=== PATIENT | female | born 1960 | race Caucasian/White ===

== ENCOUNTER 2021-02-10 19:50 | Emergency (ER) | payer BC ==
[2021-02-10] MEDS ORDERED: TYLENOL 325 MG PO ONE (21:11)
[2021-02-10] MEDS ORDERED: Sodium Chloride 0.9% 1000 ML 1,000 ML IV SCH (21:15)
[2021-02-10 21:24] LABS: ALBUMIN 4.4 g/dL (3.5-5.0); ALKALINE PHOSPHATASE 77 U/L (38-126); ANION GAP 14.9 MEQ/L (5-15); BLOOD UREA NITROGEN 18 mg/dL (7-17); CHLORIDE 102 mmol/L (98-107); Calcium 9.8 mg/dL (8.4-10.2); Carbon Dioxide 26 mmol/L (22-30); Creatinine 1 0.77 mg/dL (0.52-1.04); EST GLOMERULAR FILTRATION RATE > 60.0 ML/MIN; Glucose 112 mg/dL (74-106); Potassium 3.7 mmol/L (3.5-5.1); SGOT/AST 21 U/L (14-36); SGPT/ALT 25 U/L (0-35); SODIUM 139 mmol/L (137-145); Total Protein 7.7 g/dL (6.3-8.2)
[2021-02-10 21:25] LABS: Absolute Neutrophil Ct (ANC) 5.22 (1.4-6.9); BASOPHIL % 0.5 % (0.0-0.4); Basophil (Absolute #) 0.04 (0-0.4); Eosinophil % 2.5 % (0.00-5.0); Eosinophil (Absolute #) 0.21 (0-0.5); Hematocrit 45.5 % (35-47); Hemoglobin 14.3 gm/dl (12.0-16.0); Lymphocyte (Absolute #) 2.19 (1.0-4.6); Lymphocytes % 26.4 % (24.0-44.0); Mean Cell Volume 91.2 fl (78-100); Mean Corpuscular Hemoglobin 28.7 pg (26-32); Mean Corpuscular Hgb Concent. 31.4 g/dl (32-36); Mean Platelet Volume 9.8 fl (7.5-11.0); Monocyte (Absolute #) 0.64 (0.0-1.3); Monocytes % 7.7 % (0.0-12.0); Neutrophil % 62.9 % (36.0-66.0); Platelet Count 319 K/mm3 (150-450); Red Blood Count 4.99 M/mm3 (4.1-5.4); Red Cell Distribution Width 15.5 % (11.5-14.0); White Blood Count 8.3 K/mm3 (4.0-10.5)
[2021-02-10] MEDS ORDERED: TYLENOL 325 MG ONE (21:25)
[2021-02-10] MEDS ORDERED: Sodium Chloride 0.9% 1000 ML 1,000 ML ONE (21:25)
--- NOTE | 2021-02-10 22:18 | ERPHSYRPT ---
- History of Present Illness Time Seen by Provider: 02/10/21 20:10 Historian: patient Exam Limitations: no limitations Patient Subjective Stated Complaint: pt states "I was kicked off my horse on Tuesday." Triage Nursing Assessment: pt ambulated into the er; pt is axo x4; c/o left rib and left abd pain; pt states 3/10 pain to left rib; pt states pain is sharp and intermittent pain; pt states difficulty taking deep breaths; pt states she fell on pavement on left side; abd is round, firm, tender; pt has coarse, rub sounds in LLL; active bowel sounds in all quads; pt denies N/V/D; hypertensive Physician History: Patient is a 60-year-old female presents to emergency department with complaints of possible left lower lobe rib fractures and left upper quadrant abdominal pain. Patient states she fell off of her horse on Tuesday 3 days ago. Patient has been experiencing intermittent sharp pain since then. Pain is mild to moderate in intensity. Deep breathing reproduces localized pain to the left ribs. No other complaints. No chest pain or shortness of breath. No nausea vomiting or diaphoresis. Symptoms are ongoing. Patient concerned that she may have rib fractures. Patient voices no other complaints or concerns at this time. Timing/Duration: day(s) (3 days ago) Activities at Onset: activity Quality: sharpness Abdominal Pain Onset Location: [facility] Pain Radiation: no radiation Severity of Pain-Max: moderate Severity of Pain-Current: mild Modifying Factors: Improves With: breathing Associated Symptoms: denies symptoms Previous symptoms: no prior history Allergies/Adverse Reactions: Bleach (Sodium Hypochlorite) Allergy (Verified 02/10/21 20:03) Itching Home Medications: Losartan Potassium 100 mg PO DAILY 02/10/21 [History] Hx Tetanus, Diphtheria Vaccination/Date Given: Yes Hx Influenza Vaccination/Date Given: No Hx Pneumococcal Vaccination/Date Given: No Travel Risk - International Travel Have you traveled outside of the country in past 3 weeks: No - Coronavirus Screening Are you exhibiting any of the following symptoms?: No Close contact with a COVID-19 positive Pt in past 14-21 Days: No - Vaccine Status Have you recieved a Covid-19 vaccination: Yes Play Back Operator: Binary Thumb - Review of Systems Constitutional: No Symptoms, No Fever, No Chills Eyes: No Symptoms Ears, Nose, & Throat: No Symptoms Respiratory: No Symptoms, No Cough, No Dyspnea Cardiac: No Symptoms, No Chest Pain, No Edema, No Syncope Abdominal/Gastrointestinal: No Symptoms, No Abdominal Pain, No Nausea, No Vomiting, No Diarrhea Genitourinary Symptoms: No Symptoms, No Dysuria Musculoskeletal: No Symptoms, No Back Pain, No Neck Pain Skin: No Symptoms, No Rash Neurological: No Symptoms, No Dizziness, No Focal Weakness, No Sensory Changes Psychological: No Symptoms Endocrine: No Symptoms Hematologic/Lymphatic: No Symptoms Immunological/Allergic: No Symptoms All Other Systems: Reviewed and Negative - Past Medical History Pertinent Past Medical History: Yes Neurological History: No Pertinent History ENT History: No Pertinent History Cardiac History: Hypertension Respiratory History: No Pertinent History Endocrine Medical History: No Pertinent History Musculoskeletal History: No Pertinent History GI Medical History: No Pertinent History History: No Pertinent History Psycho-Social History: No Pertinent History Female Reproductive Disorders: No Pertinent History - Past Surgical History Past Surgical History: Yes Neuro Surgical History: No Pertinent History Cardiac: No Pertinent History Respiratory: No Pertinent History Gastrointestinal: No Pertinent History Genitourinary: No Pertinent History Musculoskeletal: Orthopedic Surgery Female Surgical History: Hysterectomy Other Surgical History: rt knee - Social History Smoking Status: Never smoker Exposure to second hand smoke: Yes Drug Use: none Patient Lives Alone: No - Female History Hx Now: No - Nursing Vital Signs Nursing Vital Signs: Initial Vital Signs Temperature 97.9 F 02/10/21 20:04 Pulse Rate 81 02/10/21 20:04 Respiratory Rate 18 02/10/21 20:04 Blood Pressure 203/93 02/10/21 20:04 O2 Sat by Pulse Oximetry 97 02/10/21 20:04 Pain Scale Pain Intensity 2 - Physical Exam General Appearance: no apparent distress, alert Eye Exam: PERRL/EOMI, eyes nml inspection Ears, Nose, Throat Exam: normal ENT inspection, pharynx normal, moist mucous membranes Neck Exam: normal inspection, non-tender, supple, full range of motion Respiratory Exam: normal breath sounds, lungs clear, No respiratory distress Cardiovascular Exam: regular rate/rhythm, normal heart sounds Gastrointestinal/Abdomen Exam: soft, No tenderness, No mass Back Exam: normal inspection, normal range of motion, No CVA tenderness, No vertebral tenderness Extremity Exam: normal inspection, normal range of motion, pelvis stable Neurologic Exam: alert, oriented x 3, cooperative, normal mood/affect, nml cerebellar function, sensation nml, No motor deficits Skin Exam: normal color, warm, dry SpO2 Interpretation: normal SpO2: 96 O2 Delivery: Room Air - Course Nursing assessment & vital signs reviewed: Yes - Radiology Exams Abdomen X-ray Interpretation: Teleradiologist Report Ordered Tests: Active Orders 24 hr Category Date Time Status IV Insertion STAT Care 02/10/21 21:11 Active ABDOMEN AND PELVIS W CONTRAST [CT] Stat Exams 02/10/21 22:14 Taken CBC W DIFF Stat Lab 02/10/21 21:11 Completed CMP Stat Lab 02/10/21 21:11 Completed TROPONIN Q3H Lab 02/10/21 21:11 Completed TROPONIN Q3H Lab 02/11/21 00:15 Ordered TROPONIN Q3H Lab 02/11/21 03:15 Ordered TROPONIN Q3H Lab 02/11/21 06:15 Ordered TROPONIN Q3H Lab 02/11/21 09:15 Ordered Medication Summary Generic Name Dose Route Start Last Admin Trade Name Freq PRN Reason Stop Dose Admin Sodium Chloride 1,000 mls @ 100 mls/hr 02/10/21 21:15 02/10/21 21:27 Sodium Chloride 0.9% 1000 Ml IV 03/12/21 21:14 100 mls/hr .Q10H TERESA Administration Discontinued Medications Generic Name Dose Route Start Last Admin Trade Name Freq PRN Reason Stop Dose Admin Acetaminophen 975 mg 02/10/21 21:11 02/10/21 21:27 Tylenol 325 Mg PO 02/10/21 21:12 975 mg STAT ONE Administration Acetaminophen Confirm 02/10/21 21:25 Tylenol 325 Mg Administered 02/10/21 21:26 Dose 975 mg .ROUTE .Blip Lab/Rad Data: Laboratory Result Diagrams 02/10/21 21:11 02/10/21 21:11 Laboratory Results 02/10/21 02/10/21 02/10/21 Range/Units 21:11 21:11 21:11 WBC 8.3 (4.0-10.5) K/mm3 RBC 4.99 (4.1-5.4) M/mm3 Hgb 14.3 (12.0-16.0) gm/dl Hct 45.5 (35-47) % MCV 91.2 (78-100) fl MCH 28.7 (26-32) pg MCHC 31.4 L (32-36) g/dl RDW 15.5 H (11.5-14.0) % Plt Count 319 (150-450) K/mm3 MPV 9.8 (7.5-11.0) fl Gran % 62.9 (36.0-66.0) % Eos # (Auto) 0.21 (0-0.5) Absolute Lymphs (auto) 2.19 (1.0-4.6) Absolute Monos (auto) 0.64 (0.0-1.3) Lymphocytes % 26.4 (24.0-44.0) % Monocytes % 7.7 (0.0-12.0) % Eosinophils % 2.5 (0.00-5.0) % Basophils % 0.5 (0.0-0.4) % Absolute Granulocytes 5.22 (1.4-6.9) Basophils # 0.04 (0-0.4) Sodium 139 (137-145) mmol/L Potassium 3.7 (3.5-5.1) mmol/L Chloride 102 (98-107) mmol/L Carbon Dioxide 26 (22-30) mmol/L Anion Gap 14.9 (5-15) MEQ/L BUN 18 H (7-17) mg/dL Creatinine 0.77 (0.52-1.04) mg/dL Estimated GFR > 60.0 ML/MIN Glucose 112 H (74-106) mg/dL Calcium 9.8 (8.4-10.2) mg/dL Total Bilirubin 0.50 (0.2-1.3) mg/dL AST 21 (14-36) U/L ALT 25 (0-35) U/L Alkaline Phosphatase 77 (38-126) U/L Troponin I < 0.012 (0.000-0.034) ng/mL Serum Total Protein 7.7 (6.3-8.2) g/dL Albumin 4.4 (3.5-5.0) g/dL - Progress Progress: improved Progress Note: Patient reassessed. Pain much improved. Work-up reveals multiple rib fractures. Patient also has a tiny pneumothorax. Injury is 3 days old. Case discussed with Dr. Diaz. No indication for admission at this time. Ani Ragsdale will see patient tomorrow in the office per Dr. Diaz. They will monitor this pneumothorax as an outpatient. Patient does not want to stay in the hospital. 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 We will give patient an incentive spirometer prior to d ischarge. Toradol prescription forwarded to patient's pharmacy. Patient will be discharged home once take-home [place] pills. Patient voiced no other complaints concerns at this time will discharge home. Portions of this note were created with voice recognition technology. There may be grammatical, spelling, punctuation or sound alike errors 02/10/21 23:[address] Jatin Will see patient in: office Counseled pt/family regarding: lab results, diagnosis, need for follow-up, rad results - Departure Departure Disposition: Home Clinical Impression: Atherosclerotic vascular disease, Pneumothorax, Pleural effusion, left, Fatty liver, Cholelithiasis, Diverticulosis, Lung granuloma, Rib fractures Condition: Stable Critical Care Time: No Referrals: DINO RAGSDALE BARGEMAN [Primary Care Provider] - Additional Instructions: Discharge/Care Plan HAYDEE BALLARD was seen on 02/10/21 in the Emergency Room. The patient was counseled regarding Diagnosis,Lab results, Imaging studies, need for follow up and when to return to the Emergency Room. Prescriptions given: Discharge Note I have spoken with the patient and/or caregivers. I have explained the patient's condition, diagnosis and treatment plan based on the information available to me at this time. I have answered the patient's and/or caregiver's questions and addressed any concerns. The patient and/or caregivers have as good understanding of the patient's diagnosis, condition and treatment plan as can be expected at this point. The vital signs have been stable. The patient's condition is stable and appropriate for discharge from the emergency department. The patient will pursue further outpatient evaluation with the primary care physician or other designated or consulting physician as outlined in the discharge instructions. The patient and/or caregivers are agreeable to this plan of care and follow-up instructions have been explained in detail. The patient a nd/or caregivers have received these instruction. The patient/and or caregivers are aware that any significant change in condition or worsening of symptoms should prompt an immediate return to this or the closest emergency department or call 911. Prescriptions: Ketorolac Tromethamine [Toradol] 10 mg PO TID 5 Days #15 tablet
[2021-02-10] MEDS ORDERED: NORCO 5/325 MG PO ONE (23:34)
[2021-02-10] MEDS ORDERED: TORAdol 30 mg Injection IV ONE (23:35)
[2021-02-10] MEDS ORDERED: TORAdol 30 mg Injection ONE (23:40)
[2021-02-10] MEDS ORDERED: NORCO 5/325 MG ONE (23:41)
[2021-02-10 23:51] VITALS: BP 189/94; PULSE 62; O2SAT 94
--- NOTE | 2021-02-11 09:08 | XRAY ---
Indication: Left upper quadrant pain following fall off horse February 07, 2021. Multiple contiguous axial images obtained through the abdomen and pelvis using 80 cc Isovue 370 contrast. Comparison: None Lung bases demonstrates minimally displaced posterior left 6/7 rib fractures and tiny anterior 5-7 cortical rib fractures. Tiny hemothorax and even smaller tiny pneumothorax. Also bibasilar subsegmental atelectasis/scarring. Heart not enlarged. Small hiatal hernia. Noncontrasted stomach and bowel loops appear nonobstructed. Incidental scattered colonic diverticulosis, 3 cm gallstone, 21 cm fatty hepatomegaly, and 14.5 cm splenomegaly. Previous hysterectomy. No free fluid/air. Remaining pancreas, adrenal glands, kidneys, ureters, and bladder are unremarkable. Moderate scattered aortoiliac calcifications. No AAA or pathologic retroperitoneal lymphadenopathy. Osseous structures intact with mild/moderate degenerative changes throughout the thoracolumbar spine. Impression: 1. Left 5-7 rib fractures with tiny hemothorax/pneumothorax. 2. Incidental small hiatal hernia, 3 cm gallstone, fatty hepatomegaly, splenomegaly, arteriosclerotic disease, and chronic bony findings. Comment: Preliminary interpretation made by [facility]. No critical discrepancy.
== END 2021-02-10 23:56 | disposition home or self-care (01) ==
LOC: ED 19:50
DX: I70.90 Unspecified atherosclerosis (principal); I10 Essential (primary) hypertension; J93.9 Pneumothorax, unspecified; J90 Pleural effusion, not elsewhere classified; K76.0 Fatty (change of) liver, not elsewhere classified; K80.20 Calculus of gallbladder without cholecystitis without obstruction; K57.90 Diverticulosis of intestine, part unspecified, without perforation or abscess without bleeding; J84.10 Pulmonary fibrosis, unspecified; S22.42XA Multiple fractures of ribs, left side, initial encounter for closed fracture; V80.010A Animal-rider injured by fall from or being thrown from horse in noncollision accident, initial encounter
CPT/HCPCS: 36000; 36415; 74177; 80053; 84484; 85025; 96374; 99284; J1885; A9270-GY